=== PATIENT | female | born 1990 | race Caucasian/White ===

== ENCOUNTER 2020-08-08 18:32 | Emergency (ER) | payer MEDICAID ==
[~2020-08-08] VITALS: Ht 154.9 cm; Wt 56.7 kg
--- NOTE | 2020-08-08 18:33 | NUR ---
Patient triaged and placed in waiting room. VSS and patient appears in no acute distress at this time. Accompanied by self , awaiting available bed, and MD notified of need for MSE.
--- NOTE | 2020-08-08 18:35 | NUR ---
Pt brought by self, A&Ox4, pt presents to ER with R elbow pain after mechanical fall, skin pink and warm, cap refill <3, VSS, respirations even and unlabored.
[2020-08-08 18:41] VITALS: BP_SYST 107
--- NOTE | 2020-08-08 21:15 | NUR ---
ER [facility] examining patient.
[2020-08-08] MEDS ORDERED: BACITRACIN 1 GM OINT TP ONE (21:26)
[2020-08-08] MEDS ORDERED: IBUPROFEN 600 MG TABLET PO ONE (21:30)
[2020-08-08 21:50] VITALS: BP_SYST 108
--- NOTE | 2020-08-08 21:50 | NUR ---
Patient given written and verbal discharge instructions by Dr Araya and verbalizes understanding. ER MD discussed with patient the results and treatment provided. Patient in stable condition. ID arm band removed. Rx of Naprosyn 500 mg given. Patient educated on pain management and to follow up with PMD by Dr Araya. Pain Scale 3/10. Opportunity for questions provided and answered.
== END 2020-08-08 21:50 | disposition home or self-care (01) ==
LOC: SED 18:32
DX: S42.491A Other displaced fracture of lower end of right humerus, initial encounter for closed fracture (principal); J45.909 Unspecified asthma, uncomplicated; Z88.2 Allergy status to sulfonamides; W01.0XXA Fall on same level from slipping, tripping and stumbling without subsequent striking against object, initial encounter; Y93.89 Activity, other specified; Y92.89 Other specified places as the place of occurrence of the external cause; Y99.8 Other external cause status
CPT/HCPCS: 99283

== ENCOUNTER 2022-03-11 20:20 | Emergency (ER) | payer MEDICAID ==
[~2022-03-11] VITALS: Ht 162.6 cm; Wt 61.7 kg
--- NOTE | 2022-03-11 20:25 | NUR ---
pt to ER w/ c/o rash w/ intermittent itching to bilateral lower extremities--worse to left leg-- x 2 days worsening today. Pt denies contact with chemicals, new products, or new medications. Rash has unique pattern, worse on left leg, with circular rash superior to left knee with red lines running down anterior, lateral, and medial aspects of bilateral lower extremities. Pt denies itching at this time. Denies SOB. Respirations even and unlabored. Normal skin color for ethnicity.
[2022-03-11 20:28] VITALS: BP_SYST 103
[2022-03-11 21:25] LABS: BASOPHILS # (AUTO) 0.1 K/uL (0.0-0.2); EOSINOPHILS # (AUTO) 0.2 K/uL (0.0-0.4); EOSINOPHILS % (AUTO) 1.7 % (0.0-4.0); HEMATOCRIT 37.4 % (36-48); HEMOGLOBIN 12.8 g/dL (12.0-16.0); LYMPHOCYTES # (AUTO) 4.5 K/uL (1.0-5.5); LYMPHOCYTES % (AUTO) 48.2 % (20.5-51.5); MEAN CORPUSCULAR HEMOGLOBIN 29 pg (27-31); MEAN CORPUSCULAR HGB CONC 34 % (32-36); MEAN CORPUSCULAR VOLUME 86 fL (79.0-98.0); MONOCYTES # (AUTO) 0.6 K/uL (0.0-1.0); MONOCYTES % (AUTO) 6.9 % (1.7-9.3); NEUTROPHILS % (AUTO) 42.2 % (40.0-70.0); PLATELET COUNT (AUTO) 281 K/uL (130-430); RED BLOOD CELL COUNT(AUTO) 4.37 MIL/uL (4.2-6.2); RED CELL DISTRIBUTION WIDTH 13.7 % (9.0-15.0); WHITE BLOOD COUNT (AUTO) 9.4 K/uL (4.8-10.8)
[2022-03-11 21:35] LABS: CALCIUM 8.9 mg/dL (8.4-11.0); CREATININE 0.71 mg/dL (0.55-1.30); POTASSIUM 3.8 mmol/L (3.5-5.1)
--- NOTE | 2022-03-12 01:00 | NUR ---
MD Dumont assessing patient at this time
[2022-03-12] MEDS ORDERED: SULF1TAB48 PO (01:12)
[2022-03-12] MEDS ORDERED: SULFAMETHOXAZOLE/TRIMETHOPR DS 1 TABLET PO ONE ×2 (01:15)
--- NOTE | 2022-03-12 01:27 | NUR ---
Patient given written and verbal discharge instructions and verbalizes understanding. ER MD discussed with patient the results and treatment provided. Patient in stable condition. ID arm band removed. Rx of Bactrim given. Patient educated on pain management and to follow up with PMD. Pain Scale 0/10 Opportunity for questions provided and answered.
[2022-03-12 01:28] VITALS: BP_SYST 127
== END 2022-03-12 01:28 | disposition home or self-care (01) ==
LOC: SED 20:20
DX: L29.9 Pruritus, unspecified (principal); J45.909 Unspecified asthma, uncomplicated; Z91.013 Allergy to seafood; Z79.899 Other long term (current) drug therapy
CPT/HCPCS: 36415; 80048; 85025; 99283

== ENCOUNTER 2023-06-18 16:11 | Emergency (ER) | payer MEDICAID ==
[~2023-06-18] VITALS: Ht 162.6 cm; Wt 57.2 kg
[~2023-06-18 16:11] MED LIST: SULF1TAB48 PO
[2023-06-18] MEDS ORDERED: PREN1TAB79 PO (16:21)
[2023-06-18 16:22] VITALS: BP_SYST 92; PULSE 78; RESP 18; TEMP 97.5; O2SAT 99
[2023-06-18] MEDS ORDERED: ACETAMINOPHEN 500 MG TABLET PO ONE (17:30)
[2023-06-18 17:44] LABS: BILIRUBIN,URINE NEGATIVE (NEGATIVE); BLOOD, URINE 1+ (NEGATIVE); CLARITY/URINE CLEAR (CLEAR); COLOR,URINE YELLOW (YELLOW); GLUCOSE,URINE NEGATIVE (NEGATIVE); KETONES,URINE NEGATIVE (NEGATIVE); LEUKOCYTE ESTERASE ,URINE TRACE (NEGATIVE); NITRITE, URINE NEGATIVE (NEGATIVE); PROTEIN URINE NEGATIVE (NEGATIVE); UROBILINOGEN,URINE 0.2 (0.2-1.0)
[2023-06-18 17:52] LABS: BACTERIA,URINE FEW /HPF (None Seen); MUCUS,URINE None Seen /LPF (None Seen); RBC,URINE 0-3 /HPF (0-3)
[2023-06-18] MEDS ORDERED: NITR-85 PO (18:12)
[2023-06-18 19:22] VITALS: BP_SYST 110; PULSE 78; RESP 18; TEMP 97.5; O2SAT 99
== END 2023-06-18 19:23 | disposition home or self-care (01) ==
LOC: SED 16:11
DX: O23.41 Unspecified infection of urinary tract in pregnancy, first trimester (principal); N39.0 Urinary tract infection, site not specified; Z3A.01 Less than 8 weeks gestation of pregnancy; J45.909 Unspecified asthma, uncomplicated; Z91.013 Allergy to seafood; Z79.899 Other long term (current) drug therapy
CPT/HCPCS: 81000; 81001; 81015; 99283

== ENCOUNTER 2023-12-01 11:51 | Emergency (ER) | payer MEDICAID ==
[~2023-12-01] VITALS: Ht 162.6 cm; Wt 61.2 kg
[~2023-12-01 11:51] MED LIST changes: +NITR-85 PO; +PREN1TAB79 PO
[2023-12-01 12:02] VITALS: BP_SYST 101; PULSE 66; RESP 16; TEMP 97.4; O2SAT 100
[2023-12-01 13:05] LABS: BASOPHILS # (AUTO) 0.1 K/uL (0.0-0.2); BASOPHILS % (AUTO) 0.9 % (0.0-2.0); EOSINOPHILS # (AUTO) 0.2 K/uL (0.0-0.4); EOSINOPHILS % (AUTO) 2.4 % (0.0-4.0); HEMATOCRIT 36.9 % (36-48); HEMOGLOBIN 12.8 g/dL (12.0-16.0); LYMPHOCYTES # (AUTO) 1.7 K/uL (1.0-5.5); MEAN CORPUSCULAR HEMOGLOBIN 30 pg (27-31); MEAN CORPUSCULAR HGB CONC 35 % (32-36); MEAN CORPUSCULAR VOLUME 88 fL (79.0-98.0); MONOCYTES # (AUTO) 0.5 K/uL (0.0-1.0); MONOCYTES % (AUTO) 5.1 % (1.7-9.3); NEUTROPHILS # (AUTO) 6.7 K/uL (1.8-7.7); NEUTROPHILS % (AUTO) 72.6 % (40.0-70.0); PLATELET COUNT (AUTO) 361 K/uL (130-430); RED BLOOD CELL COUNT(AUTO) 4.21 MIL/uL (4.2-6.2); RED CELL DISTRIBUTION WIDTH 14.2 % (9.0-15.0); WHITE BLOOD COUNT (AUTO) 9.2 K/uL (4.8-10.8)
[2023-12-01 13:37] LABS: BILIRUBIN,URINE NEGATIVE (NEGATIVE); BLOOD, URINE 3+ (NEGATIVE); CLARITY/URINE CLEAR (CLEAR); COLOR,URINE YELLOW (YELLOW); GLUCOSE,URINE NEGATIVE (NEGATIVE); KETONES,URINE NEGATIVE (NEGATIVE); LEUKOCYTE ESTERASE ,URINE NEGATIVE (NEGATIVE); NITRITE, URINE NEGATIVE (NEGATIVE); PROTEIN URINE NEGATIVE (NEGATIVE); UROBILINOGEN,URINE 0.2 (0.2-1.0)
[2023-12-01 14:06] LABS: BACTERIA,URINE MODERATE /HPF (None Seen); WBC,URINE 0-3 /HPF (0-3)
[2023-12-01] MEDS: RHO(D) IMMUNE GLOBULIN/MALTOSE 1500 UNITS/1.3 ML (WINHRO) INJ ONE (15:23)
[2023-12-01 15:28] VITALS: BP_SYST 108; PULSE 70; RESP 18; TEMP 97.6; O2SAT 100
== END 2023-12-01 14:05 | disposition home or self-care (01) ==
LOC: SED 11:51
DX: O26.891 Other specified pregnancy related conditions, first trimester (principal); Z3A.01 Less than 8 weeks gestation of pregnancy; J45.909 Unspecified asthma, uncomplicated; Z91.013 Allergy to seafood; Z79.899 Other long term (current) drug therapy
CPT/HCPCS: 99285; 76801; 81001; 84702; 83690; 85025; 86900; 86901; 36415; 81025; 96372; 81000; 81015; J2792; J2790

== ENCOUNTER 2024-05-24 17:22 | Emergency (ER) | payer MEDICAID ==
[~2024-05-24] VITALS: Ht 162.6 cm; Wt 61.7 kg
[2024-05-24 18:03] VITALS: BP_SYST 128; PULSE 81; RESP 16; TEMP 97.4; O2SAT 100
== END 2024-05-24 20:50 | disposition left against medical advice (07) ==
LOC: SED 17:22
DX: O26.52 Maternal hypotension syndrome, second trimester (principal); O26.892 Other specified pregnancy related conditions, second trimester; R51.9 Headache, unspecified; Z3A.23 23 weeks gestation of pregnancy; Z53.21 Procedure and treatment not carried out due to patient leaving prior to being seen by health care provider